=== PATIENT | male | born 1955 | race Caucasian/White ===

== ENCOUNTER 2019-07-23 10:35 | Emergency (ER) | payer OTHER ==
[2019-07-23 10:45] VITALS: BP 164/83; PULSE 83; TEMP 97.8; BMI 21.1
--- NOTE | 2019-07-23 10:59 | PDOC ---
Suture Removal/Wound Check HPI - History of Present Illness Chief Complaint: Laceration Stated Complaint: LAC LT HAND Time Seen by Provider: 07/23/19 10:57 History Source: Yes: Patient Exam Limitations: Yes: No Limitations - Previous ED Treatment Tetanus Immunization: Yes: Up to Date (L thumb laceration sustained at work 10am today) Past History - Travel Traveled outside of the country in the last 30 days: No Close contact w/someone who was outside of country & ill: No - Past Medical History Allergies/Adverse Reactions: Allergies Allergy/AdvReac Type Severity Reaction Status Date / Time No Known Allergies Allergy Verified 07/23/19 10:40 Home Medications: Ambulatory Orders NK [No Known Home Medication] 07/23/19 - Immunization History Immunization Up to Date: Yes - Psycho Social/Smoking Cessation Hx Smoking History: Smoker current status UNK Number of Cigarettes Smoked Daily: 24 'Breaking Loose' booklet given: 05/11/14 Hx Alcohol Use: No Substance Use Type: Marijuana Suture Removal/Wound Check PE - Physical Exam Location of Laceration/Wound: left: Hand (base of thumb) *Review of Systems - Review of Systems Constitutional: No: Chills, Fever Musculoskeletal: Yes: Other (L thumb laceration) Neurological: Yes: Headache *Physical Exam - Vital Signs Last Vital Signs Temp Pulse Resp BP Pulse Ox 97.8 F 83 16 164/83 99 07/23/19 10:40 07/23/19 10:40 07/23/19 10:40 07/23/19 10:40 07/23/19 10:40 - Physical Exam General Appearance: Yes: Nourished Extremity: positive: Normal Capillary Refill, Normal Range of Motion, Other (L thumb: 3cm linear lac noted at base of thumb, no active bleed, no tendon exposure, sensation intact, FROM) Neurologic: positive: 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 intact, Fully Oriented, Alert, Normal Mood/ Affect, Normal Response, Motor Strength 5/5 Procedures - Laceration/Wound Repair Left Upper Hand 1st digit Wound Explored: clean Wound's Depth, Shape: superficial Irrigated w/ Saline: Yes Betadine Prep: Yes Anesthesia: 2% Lidocaine Wound Repaired With: Sutures Suture Size/Type: 3:0 Number of Sutures: 5 Sterile Dressing Applied: Yes Medical Decision Making - Medical Decision Making 07/23/19 10:59 63 years old male with no prior medical history patient is right-hand dominant presents with laceration to the base of the left thumb sustained while using a knife to cut meat this morning working this morning. 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 His last tetanus was 2013. 07/23/19 12:20 Patient had laceration repair Signs and symptoms of infection cussed with patient Discharge - Discharge Information Problems reviewed: Yes Clinical Impression/Diagnosis: Finger laceration Qualifiers: Encounter type: initial encounter Finger: thumb Damage to nail status: without damage Foreign body presence: without foreign body Laterality: left Qualified Code(s): S61.012A - Laceration without foreign body of left thumb without damage to nail, initial encounter Condition: Stable Disposition: HOME - Admission No - Additional Discharge Information Prescription Drug Monitoring Program (I-STOP) results: I-STOP not reviewed - Follow up/Referral - Patient Discharge Instructions Patient Printed Discharge Instructions: DI for Laceration Repair Additional Instructions: Please return to the emergency room in 10 days for suture removal. Keep area dry. Return to the emergency room immediately if redness, or discharge, worsening pain occurs. - Post Discharge Activity
== END 2019-07-23 11:45 | disposition home or self-care (01) ==
LOC: JERFT 10:35 → JER 10:35 → JERFT 11:45
PROC: 0HQGXZZ Repair Left Hand Skin, External Approach (ICD-10-PCS; principal; 2019-07-23)
DX: S61.012A Laceration without foreign body of left thumb without damage to nail, initial encounter (principal); W26.0XXA Contact with knife, initial encounter; Y93.G1 Activity, food preparation and clean up; Y92.69 Other specified industrial and construction area as the place of occurrence of the external cause; Y99.0 Civilian activity done for income or pay
CPT/HCPCS: 99281-25

== ENCOUNTER 2019-08-02 07:22 | Emergency (ER) | payer OTHER ==
[2019-08-02 07:32] VITALS: BP 167/79; PULSE 65; TEMP 98; BMI 21.0
--- NOTE | 2019-08-02 07:46 | PDOC ---
Suture Removal/Wound Check HPI - History of Present Illness Chief Complaint: Suture/Staple Removal(Here) Stated Complaint: Suture/Staple Removal (other) Time Seen by Provider: 08/02/19 07:30 History Source: Yes: Patient Treated at: [facility] ED - Previous ED Treatment Type of procedure performed on last visit: Yes: Laceration Repair Tetanus Immunization: Yes: Up to Date Past History - Past Medical History Allergies/Adverse Reactions: Allergies Allergy/AdvReac Type Severity Reaction Status Date / Time No Known Allergies Allergy Verified 08/02/19 07:32 Home Medications: Ambulatory Orders NK [No Known Home Medication] 07/23/19 COPD: No - Immunization History Immunization Up to Date: Yes - Psycho Social/Smoking Cessation Hx Smoking History: Smoker current status UNK Number of Cigarettes Smoked Daily: 24 'Breaking Loose' booklet given: 05/11/14 Hx Alcohol Use: No Substance Use Type: Marijuana Suture Removal/Wound Check PE - Physical Exam Laceration/Wound Check Symptoms: reports: None *Review of Systems - Review of Systems Constitutional: No: Chills, Fever Integumentary: No: Erythema *Physical Exam - Vital Signs Last Vital Signs Temp Pulse Resp BP Pulse Ox 98 F 65 18 167/79 98 08/02/19 07:28 08/02/19 07:28 08/02/19 07:28 08/02/19 07:28 08/02/19 07:28 - Physical Exam General Appearance: Yes: Appropriately Dressed. No: Apparent Distress Respiratory/Chest: negative: Respiratory Distress Integumentary: positive: Dry, Warm, Other (well healing wound to dorsal aspect of base of L thumb w/ [address]) Neurologic: positive: Fully Oriented, Alert, Normal Mood/Affect Medical Decision Making - Medical Decision Making 08/02/19 07:44 63-year-old male here for suture removal. Patient s/p lac repair 11 days ago at [facility]. Wound to L thumb well-healing per patient w/ no pain, redness, fever or chills. Wound well healing with 7 sutures removed today without any complications Discharge - Discharge Information Problems reviewed: Yes Clinical Impression/Diagnosis: Visit for suture removal Condition: Good Disposition: HOME - Follow up/Referral - Patient Discharge Instructions Patient Printed Discharge Instructions: DI for Suture Removal - Post Discharge Activity
== END 2019-08-02 08:30 | disposition home or self-care (01) ==
LOC: JER 07:22
DX: Z48.817 Encounter for surgical aftercare following surgery on the skin and subcutaneous tissue (principal); Z48.02 Encounter for removal of sutures
CPT/HCPCS: 99281-25

== ENCOUNTER 2021-02-15 14:18 | Emergency (ER) | payer OTHER ==
[2021-02-15 14:31] VITALS: BP 156/80; PULSE 60; TEMP 97.9; BMI 25.0
[2021-02-15] MEDS ORDERED: DIPHTH,PERTUSS(ACELL),TET 0.5 ML DISP.SYRIN IM ONE ×2 (15:46→15:56)
== END 2021-02-15 16:28 | disposition home or self-care (01) ==
LOC: JERFT 14:18
PROC: 3E0234Z Introduction of Serum, Toxoid and Vaccine into Muscle, Percutaneous Approach (ICD-10-PCS; principal; 2021-02-15)
DX: S61.210A Laceration without foreign body of right index finger without damage to nail, initial encounter (principal)
CPT/HCPCS: 90715; 99284-25